=== PATIENT | male | born 1955 | race Caucasian/White ===

== ENCOUNTER 2023-10-11 12:34 | Outpatient (CLI) | payer MEDICARE ==
[2023-10-11 15:17] LABS: Bilirubin Neg (Negative); Blood, Urine 10 (Negative); Clarity Clear (Clear); Glucose, Urine (Dipstick) Normal (Negative); Ketone, Urine Negative (Negative); Leukocyte Negative (Negative); Nitrite Negative (Negative); Protein, Urine (Dipstick) 15 mg/dl (Neg-Trace); Specific Gravity, Urine 1.015 (1.005-1.030); Urobilinogen Normal mg/dL (Less than 2); pH, Urine 6.5 (5.0-9.0)
[2023-10-11 15:29] LABS: Hematocrit 44.6 % (38.8-50.0); Hemoglobin 15.3 g/dL (13.5-17.5); Mean Corpuscular HGB CONC 34.3 g/dL (32.0-36.0); Mean Corpuscular Hemoglobin 30.8 pg (27.0-33.0); Mean Corpuscular Volume 89.9 fL (81.2-95.1); Platelet Count 278 10x3/uL (150-450); RBC Distribution Width 12.7 % (11.5-14.5); Red Blood Cell (RBC) Count 4.96 10x6/uL (4.32-5.72); White Blood Cell (WBC) Count 7.8 10x3/uL (3.5-10.5)
[2023-10-11 15:40] LABS: PTT 25.9 sec (22.0-33.0); Prothrombin Time 10.8 sec (9.5-12.1)
[2023-10-11 15:41] LABS: Anion Gap 15 mmol/L (10-20); BUN (Urea Nitrogen) 16 mg/dL (8.4-25.7); Calc. Creatinine Clearance 0 mL/min (70-130); Calcium 9.3 mg/dL (7.8-10.44); Carbon Dioxide 23 mmol/L (23-31); Chloride 104 mmol/L (98-107); Estimated GFR 79; Glucose 81 mg/dL (80-115); Potassium 4.2 mmol/L (3.5-5.1); Sodium 138 mmol/L (136-145)
[2023-10-11 17:37] LABS: RBC/HPF 0-3 HPF (0-3)
[2023-10-11 17:38] LABS: Bacteria/HPF Rare-Few HPF (None Seen); Squamous Epithelial 0-3 HPF (0-3); WBC/HPF None Seen HPF (0-3)
== END 2023-10-11 12:35 | disposition home or self-care (01) ==
LOC: LABBT 12:34
PROVIDERS: ATTEND Urology
DX: Z01.818 Encounter for other preprocedural examination (principal); N40.1 Benign prostatic hyperplasia with lower urinary tract symptoms
CPT/HCPCS: 80048; 81001; 85027; 85610; 85730; 87086; 93005; 93010

== ENCOUNTER 2023-10-25 10:24 | Day surgery (SDC) | payer MEDICARE ==
[2023-10-11 13:07] VITALS: BMI 36.6
[2023-10-25] MEDS ORDERED: LevoFLOXacin D5W 500 mg (100 mL) BAG ONE (11:13)
[2023-10-25] MEDS ORDERED: fentaNYL 50 mcg/mL 1 mL Vial ONE (13:03)
[2023-10-25] MEDS ORDERED: Lidocaine 1% PF 5 ML VIAL ONE (13:03)
[2023-10-25] MEDS ORDERED: PROPOFOL 20 ML ONE (13:28)
[2023-10-25] MEDS ORDERED: Dexamethasone 20 MG/5 ML VIAL ONE (13:32)
[2023-10-25] MEDS ORDERED: Ondansetron PF 4 MG/2 ML Vial ONE (13:32)
[2023-10-25] MEDS ORDERED: ePHEDrine Sulfate 50 MG/10 ML VIAL ONE ×2 (13:38→14:16)
[2023-10-25] MEDS ORDERED: fentaNYL PF 100 MCG/2 ML SYRINGE ONE (13:40)
[2023-10-25] MEDS ORDERED: PHENYLEPHRINE-NS 100 MCG/ML 10 ML SYRINGE ONE (14:26)
[2023-10-25] MEDS ORDERED: Phenazopyridine HCl 100 MG TAB ONE (15:26)
[2023-10-25] MEDS ORDERED: Oxybutynin 5 MG TAB ONE (15:27)
== END 2023-10-25 17:30 | disposition home or self-care (01) ==
LOC: SDC 10:24
PROVIDERS: ATTEND Urology
PROC: 0VT04ZZ Resection of Prostate, Percutaneous Endoscopic Approach (ICD-10-PCS; principal; 2023-10-25)
DX: N40.1 Benign prostatic hyperplasia with lower urinary tract symptoms (principal)
CPT/HCPCS: 52601; A4333; J1100; J1956; J2405; J2704; J3010; 88305

== ENCOUNTER 2024-12-10 13:10 | Outpatient (CLI) | payer OTHER | END 2024-12-10 13:11 | disposition home or self-care (01) | LOC: EEG 13:10 | PROVIDERS: ATTEND Psychiatry & Neurology Neurology | DX: R41.3 Other amnesia (principal) | CPT/HCPCS: 95816 ==